=== PATIENT | male | born 1955 | race Caucasian/White ===

== ENCOUNTER 2018-02-12 15:12 | Inpatient (IN) | payer OTHER ==
[~2018-02-12] VITALS: Ht 162.6 cm; Wt 88.9 kg
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
[~2018-02-12 15:12] MED LIST: KEFLEX500 M1 PO
[2018-02-12 15:46] VITALS: BP 152/74
[2018-02-12 16:33] LABS: ABSOLUTE NEUTROPHILS 10.3 thou/uL (1.4-8.2); BASOPHILS 0.4 % (0.0-2.0); EOSINOPHILS 0.4 % (0.0-3.0); HEMOGLOBIN 13.8 gm/dL (14.0-18.0); LYMPHOCYTES 14.1 % (24.0-44.0); MCH 31.2 pg (26.0-34.0); MCHC 34.5 g/dL (28.0-37.0); MCV 90.3 fL (80.0-100.0); MONOCYTES 9.6 % (1.0-8.0); PLATELET COUNT 285 thou/uL (150-400); POLYS 75.5 % (36.0-66.0); RBC 4.43 mil/uL (4.50-6.00); RDW 12.4 % (10.5-14.5); WBC 13.6 thou/uL (4.0-11.0)
[2018-02-12 16:37] LABS: CALCIUM 10.1 mg/dL (8.5-10.1); CREATININE 0.9 mg/dL (0.7-1.3); POTASSIUM 5.1 mmol/L (3.5-5.1)
[2018-02-12] MEDS ORDERED: MILK THISTLE1 GM PO (17:55)
[2018-02-12] MEDS ORDERED: METFORMIN HCL500 MG PO (17:56)
[2018-02-12] MEDS ORDERED: LISINOPRIL10 MG PO (17:56)
[2018-02-12] MEDS ORDERED: CALCIUM 500 +1 EAC5 PO (17:56)
[2018-02-12] MEDS ORDERED: LIPITOR80 MG PO (17:56)
[2018-02-12] MEDS ORDERED: ASPIR 8181 MG PO (17:57)
[2018-02-12] MEDS ORDERED: METHADONE10 MG/1 M2 PO (17:59)
[2018-02-12 18:01] VITALS: BP 166/61
[2018-02-13 04:51] LABS: ABSOLUTE NEUTROPHILS 7.3 thou/uL (1.4-8.2); BASOPHILS 0.5 % (0.0-2.0); EOSINOPHILS 0.7 % (0.0-3.0); HEMATOCRIT 37.4 % (42.0-52.0); HEMOGLOBIN 12.9 gm/dL (14.0-18.0); LYMPHOCYTES 20.9 % (24.0-44.0); MCH 31.1 pg (26.0-34.0); MCHC 34.5 g/dL (28.0-37.0); MCV 90.1 fL (80.0-100.0); MONOCYTES 10.3 % (1.0-8.0); PLATELET COUNT 252 thou/uL (150-400); POLYS 67.6 % (36.0-66.0); RBC 4.15 mil/uL (4.50-6.00); RDW 12.6 % (10.5-14.5); WBC 10.9 thou/uL (4.0-11.0)
[2018-02-13 04:55] LABS: CALCIUM 8.7 mg/dL (8.5-10.1); CREATININE 0.7 mg/dL (0.7-1.3); MAGNESIUM 1.7 mg/dL (1.8-2.4)
[2018-02-13 04:56] LABS: POTASSIUM 3.9 mmol/L (3.5-5.1)
[2018-02-13 05:05] VITALS: BP 116/54
[2018-02-13 13:12] LABS: GLYCOHEMOGLOBIN (HGB A1C) 11.3 % (4.8-5.6)
[2018-02-13 13:43] VITALS: BP 144/66
[2018-02-13 14:54] VITALS: BP 144/66
[2018-02-13 20:30] VITALS: BP 137/63
[2018-02-14 04:30] VITALS: BP 141/66
[2018-02-14 07:08] LABS: BASOPHILS 0.5 % (0.0-2.0); EOSINOPHILS 1.6 % (0.0-3.0); HEMATOCRIT 40.4 % (42.0-52.0); HEMOGLOBIN 13.7 gm/dL (14.0-18.0); LYMPHOCYTES 17.3 % (24.0-44.0); MCH 30.9 pg (26.0-34.0); MCHC 33.9 g/dL (28.0-37.0); MCV 91.2 fL (80.0-100.0); MONOCYTES 8.5 % (1.0-8.0); PLATELET COUNT 261 thou/uL (150-400); POLYS 72.1 % (36.0-66.0); RBC 4.42 mil/uL (4.50-6.00); RDW 12.4 % (10.5-14.5); WBC 9.7 thou/uL (4.0-11.0)
[2018-02-14 08:00] VITALS: BP 138/70
[2018-02-14 12:58] VITALS: BP 138/70
[2018-02-14 17:00] VITALS: BP 128/56
[2018-02-14 19:40] VITALS: BP 108/70
[2018-02-15 08:37] VITALS: BP 135/72
[2018-02-15] MEDS ORDERED: CLEOCIN HCL150 MG PO (10:59)
[2018-02-15 14:10] VITALS: BP 138/70
== END 2018-02-15 18:08 | disposition home health service (06) | DRG 872 ==
LOC: ER 15:12 → 4E 17:17 → EROBS 17:17 → 4E 02-13 14:35 → SICU 02-14 19:01 → ENTRNSPT 02-15 17:54 → SICU 02-15 18:08
PROVIDERS: Emergency Medicine; Hospitalist; Nurse Practitioner
DX: A41.9 Sepsis, unspecified organism (principal); L03.115 Cellulitis of right lower limb; E11.51 Type 2 diabetes mellitus with diabetic peripheral angiopathy without gangrene; I10 Essential (primary) hypertension; J44.9 Chronic obstructive pulmonary disease, unspecified; Z16.30 Resistance to unspecified antimicrobial drugs; E11.65 Type 2 diabetes mellitus with hyperglycemia; D64.9 Anemia, unspecified; F17.210 Nicotine dependence, cigarettes, uncomplicated; E78.5 Hyperlipidemia, unspecified; G89.29 Other chronic pain; Z90.49 Acquired absence of other specified parts of digestive tract; Z98.49 Cataract extraction status, unspecified eye; Z79.82 Long term (current) use of aspirin; Z79.899 Other long term (current) drug therapy
CPT/HCPCS: 10084; 15002

== ENCOUNTER 2021-03-17 11:52 | Inpatient (IN) | payer OTHER ==
[2021-03-17] VITALS (11 sets, daily range): BP systolic 110–158; BP diastolic 60–74
[~2021-03-17] VITALS: Ht 162.6 cm; Wt 74.4 kg
[~2021-03-17 11:52] MED LIST changes: +ASPIR 8181 MG PO; +CALCIUM 500 +1 EAC5 PO; +CLEOCIN HCL150 MG PO; +LIPITOR80 MG PO; +LISINOPRIL10 MG PO; +METFORMIN HCL500 MG PO; +METHADONE10 MG/1 M2 PO; +MILK THISTLE1 GM PO
[2021-03-17 12:51] LABS: HEMATOCRIT 48.4 % (42.0-52.0); HEMOGLOBIN 16.5 gm/dL (14.0-18.0); MCH 31.4 pg (26.0-34.0); MCHC 34.2 g/dL (28.0-37.0); MCV 91.8 fL (80.0-100.0); RBC 5.27 mil/uL (4.50-6.00); RDW 13.6 % (10.5-14.5); WBC 11.2 thou/uL (4.0-11.0)
[2021-03-17 13:02] LABS: ALBUMIN 3.4 g/dL (3.4-5.0); CALCIUM 9.3 mg/dL (8.5-10.1); TOTAL BILIRUBIN 0.7 mg/dL (0.2-1.0); TOTAL PROTEIN 8.2 g/dL (6.4-8.2)
[2021-03-17 14:55] LABS: BE(vivo) -17.4 mmol/L (-2 to +3); HCO3 10.2 mmol/L (22.0-26.0); PCO2 VENOUS 30.6 mmHg (41.0-51.0); PO2 VENOUS 46.7 mmHg (35.0-45.0)
[2021-03-17 18:11] LABS: ALBUMIN 2.7 g/dL (3.4-5.0); CALCIUM 8.1 mg/dL (8.5-10.1); CREATININE 0.8 mg/dL (0.7-1.3); PHOSPHORUS 2.9 mg/dL (2.6-4.7)
[2021-03-17 18:12] LABS: POTASSIUM 5.3 mmol/L (3.5-5.1)
--- NOTE | 2021-03-17 19:15 | NUR ---
REPORT GIVEN TO JULIO CÉSAR VALDEZ AT THIS TIME
[2021-03-17 19:34] LABS: FOLIC ACID 37.6 ng/mL (8.6-58.9)
[2021-03-17 23:12] LABS: CREATININE 0.7 mg/dL (0.7-1.3)
[2021-03-17 23:14] LABS: POTASSIUM 3.7 mmol/L (3.5-5.1)
[2021-03-17 23:18] LABS: ALBUMIN 2.5 g/dL (3.4-5.0); TOTAL BILIRUBIN 0.5 mg/dL (0.2-1.0); TOTAL PROTEIN 6.5 g/dL (6.4-8.2)
[2021-03-18] VITALS (97 sets, daily range): BP systolic 110–191; BP diastolic 52–126
--- NOTE | 2021-03-18 01:18 | NUR ---
PATIENT ARRIVED AT THE UNIT AT APPROX 2130. PATIENT IS A/OX4. DENIES SOA, PAIN. C/O NAUSEA. MEDS GIVEN ORDERED. ON THE MONITOR. AFEBRILE. ON RA. VSS. ON INSULIN GTT. TITRATED PER DKA PROTOCOL. DENIES NEEDS. WILL KEEP MONITORING.
[2021-03-18 01:39] LABS: URINE BILIRUBIN 1+ (Negative); URINE BLOOD TRACE (Negative); URINE CLARITY CLEAR; URINE COLOR YELLOW; URINE GLUCOSE-RANDOM* 3+ (Negative); URINE KETONES 3+ (Negative); URINE LEUKOCYTES-REFLEX NEGATIVE (Negative); URINE NITRITE-REFLEX NEGATIVE (Negative); URINE PROTEIN (DIPSTICK) TRACE (Negative); URINE UROBILINOGEN 0.2 E.U./dl (0.2-1.0)
[2021-03-18 04:07] LABS: GLYCOHEMOGLOBIN (HGB A1C) 10.7 % (4.8-5.6)
[2021-03-18 05:26] LABS: BASOPHILS 0.1 % (0.0-2.0); HEMATOCRIT 44.4 % (42.0-52.0); HEMOGLOBIN 15.5 gm/dL (14.0-18.0); LYMPHOCYTES 18.4 % (24.0-44.0); MCH 31.5 pg (26.0-34.0); MCHC 34.8 g/dL (28.0-37.0); MCV 90.6 fL (80.0-100.0); MONOCYTES 11.5 % (1.0-8.0); PLATELET COUNT 150 thou/uL (150-400); RDW 13.7 % (10.5-14.5); WBC 7.2 thou/uL (4.0-11.0)
[2021-03-18 05:45] LABS: ALBUMIN 2.6 g/dL (3.4-5.0); CALCIUM 8.3 mg/dL (8.5-10.1); CREATININE 0.8 mg/dL (0.7-1.3); MAGNESIUM 1.6 mg/dL (1.8-2.4); PHOSPHORUS 1.5 mg/dL (2.5-4.9); POTASSIUM 3.7 mmol/L (3.5-5.1)
[2021-03-18 09:14] LABS: ALBUMIN 2.5 g/dL (3.4-5.0); CALCIUM 8.3 mg/dL (8.5-10.1); CREATININE 0.7 mg/dL (0.7-1.3); POTASSIUM 3.5 mmol/L (3.5-5.1); TOTAL BILIRUBIN 0.5 mg/dL (0.2-1.0); TOTAL PROTEIN 6.4 g/dL (6.4-8.2)
--- NOTE | 2021-03-18 09:39 | EKG ---
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
[2021-03-18 13:01] LABS: CALCIUM 8.4 mg/dL (8.5-10.1); CREATININE 0.8 mg/dL (0.7-1.3); MAGNESIUM 1.5 mg/dL (1.8-2.4); POTASSIUM 3.8 mmol/L (3.5-5.1)
--- NOTE | 2021-03-18 13:56 | NUR ---
Chart review. Discussed during los and unite rounds. + COVID. Unable to visit with him. Cm tired calling jan and his daughter dimitris. Neither numbers are working or in service. Will need to verify if he is indeed homeless , and if has PCP?. Will cont following as needed for dc needs.
[2021-03-19] VITALS (32 sets, daily range): BP systolic 136–183; BP diastolic 58–89
[2021-03-19 06:01] LABS: ABSOLUTE NEUTROPHILS 4.8 thou/uL (1.4-8.2); BASOPHILS 0.2 % (0.0-2.0); EOSINOPHILS 0.1 % (0.0-3.0); HEMOGLOBIN 15.3 gm/dL (14.0-18.0); LYMPHOCYTES 13.9 % (24.0-44.0); MCH 31.6 pg (26.0-34.0); MCHC 35.6 g/dL (28.0-37.0); MCV 88.9 fL (80.0-100.0); PLATELET COUNT 143 thou/uL (150-400); POLYS 74.8 % (36.0-66.0); RBC 4.84 mil/uL (4.50-6.00); RDW 13.6 % (10.5-14.5); WBC 6.4 thou/uL (4.0-11.0)
[2021-03-19 06:35] LABS: ALBUMIN 2.4 g/dL (3.4-5.0); CALCIUM 7.9 mg/dL (8.5-10.1); CREATININE 0.5 mg/dL (0.7-1.3); POTASSIUM 3.2 mmol/L (3.5-5.1); TOTAL BILIRUBIN 0.7 mg/dL (0.2-1.0); TOTAL PROTEIN 6.4 g/dL (6.4-8.2)
--- NOTE | 2021-03-19 10:50 | NUR ---
Discussed during los, possible dc today. CM visited with bedside nurse to see if patient can talk on phone r/t question as to where he plan on going when he is ready for dc. Reported he lives at [facility] [address]. Daughter name is dedra, and she stays with him but he doesnt remember her number. He pcp is at [address] He will need a ride home.
--- NOTE | 2021-03-19 15:40 | NUR ---
1110HRS - PROGRAM MANAGER SLP, RN UPDATED ON PT'S LIVING STATUS. PT SAID THAT HE IS LIVING IN A HOTEL([facility] WITH HIS DAUGHTER (JACKIE). HE REPORTED THAT HE LIVES AT [facility] [place] [facility] [place] [facility], [address], [address], [address], [place], [place]. HE ALSO REPORTED THAT HIS PHARMACY IS AT [place], [place].
--- NOTE | 2021-03-19 23:41 | NUR ---
PATIENT REMAINS A/OX4. DENIES ANY SOA. C/O N/V. MEDS GIVEN ORDERED. AFEBRILE. VSS. PT HAS TX ORDERS TO 3W. REPORT CALLED TO 3W RN. PATIENT OFF THE UNIT AT APPROX 2300 VIA WHEELCHAIR. REMAINS ON RA. PATIENT BELONGINGS TAKEN WITH THE PT. ATTACHED TO MONITOR. DENIES NEEDS. ALL QUESTIONS ANSWERED.
--- NOTE | 2021-03-19 23:52 | NUR ---
TRANSFERED FROM ICU. PT REPORTNG CONTINUED NAUSEA, PRN PROVIDED SCHEDULED. DUSKY SKIN TONE. PT ENCOURAGED TO CALL FOR ASSISTANCE.
[2021-03-20] VITALS (7 sets, daily range): BP systolic 138–172; BP diastolic 66–88
[2021-03-20 10:55] LABS: HEMATOCRIT 44.4 % (42.0-52.0); HEMOGLOBIN 15.5 gm/dL (14.0-18.0); MCH 30.7 pg (26.0-34.0); MCHC 34.8 g/dL (28.0-37.0); MCV 88.3 fL (80.0-100.0); RBC 5.03 mil/uL (4.50-6.00); RDW 13.2 % (10.5-14.5)
[2021-03-20 10:59] LABS: CALCIUM 8.2 mg/dL (8.5-10.1); CREATININE 0.5 mg/dL (0.7-1.3); MAGNESIUM 1.5 mg/dL (1.8-2.4)
--- NOTE | 2021-03-20 19:46 | NUR ---
RN ASSUMED PT'S CARE AT 0700-1900PM, PT IS A&OX4, PT IS ON ROOM AIR, PT IS CONTINUING USE IV ABX AND TREAT COVID, AND MANAGE N/V , PT HAS ONE TIME BM, BUT PT STILL IS POOR EATING , PT HAS STARTED PPN@ 80ML/HR, PT DENIES PAIN AND SOB AT DAY SHIFT .
--- NOTE | 2021-03-20 23:47 | NUR ---
PT HAD FALL. PT STATED HE CALLED FOR ASSISTANCE TO TURN UP HEAT BUT GOT TIRED OF WAITING. PT FOUNDS SITTING UPRIGHT ON FLOOR BY EDGE OF BED. STILL ATTACHED TO IV POLE. PT DID NOT TAKE IV POLE WITH HIM WHILE AMBULATING HE WAS TRYING TO JUST STRETCH AND REACH TEMP GUAGE ON WALL. PT YELLED OUT FOR ASSISTANCE. PT WAS ABLE TO PULL HIMSELF UP BY HOLDING ON TO FOOT BOARD OF BED. PT STATED HE LANDED ON HIS BOTTOM AND LOWER BACK AREA. PT REPORTED CHRONIC DISCOMFORT NOT NEW. NO RED AREAS NOTED. PT RETURNED TO BED. WARM BLANKET, HEAT INCREASED, PRN PROVIDED. BED ALARM ON. PT DECLINED SOCKS. NATURAL RESOURCES MANAGER, CHARGE AND PROVIDER NOTIFIED. 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
[2021-03-21 00:30] VITALS: BP 147/81
[2021-03-21 00:58] VITALS: BP 147/81
--- NOTE | 2021-03-21 01:57 | NUR ---
PT RESTING IN BED, BED ALARM ON. PT HAD FALL THIS SHIFT. PPN INTACT. PT PROVIDED HS SNACK. NO C/O NAUSEA. PT REQUESTED NICOTENE PATCH AND ORDER OBTAINED.
[2021-03-21 03:48] LABS: HEMATOCRIT 40.8 % (42.0-52.0); HEMOGLOBIN 14.5 gm/dL (14.0-18.0); MCH 31.1 pg (26.0-34.0); MCHC 35.6 g/dL (28.0-37.0); MCV 87.5 fL (80.0-100.0); RBC 4.66 mil/uL (4.50-6.00); RDW 13.1 % (10.5-14.5); WBC 6.4 thou/uL (4.0-11.0)
[2021-03-21 03:53] LABS: CALCIUM 7.8 mg/dL (8.5-10.1); CREATININE 0.6 mg/dL (0.7-1.3); MAGNESIUM 1.7 mg/dL (1.8-2.4); POTASSIUM 3.1 mmol/L (3.5-5.1)
[2021-03-21 04:16] VITALS: BP 147/67
--- NOTE | 2021-03-21 05:40 | NUR ---
IV POTASSIUM RAN ALL NIGHT AND COMPLETED THIS AM.
--- NOTE | 2021-03-21 06:28 | NUR ---
PT STATED THIS AM TO NURSE THAT IF HIS ROOM WAS NOT MADE WARMER HE WOULD GET UP AGAIN, WITH OUT CALLING FOR HELP TO TURN UP THE THERMOSTAT. PT PROVIDED WARM BLANKET, HEAT INCREASED AND VENT COVERED. PT EDUCATED AGAIN TO CALL FOR ASSISTANCE.
[2021-03-21 07:28] VITALS: BP 152/73
[2021-03-21 15:06] VITALS: BP 136/75
--- NOTE | 2021-03-21 17:05 | NUR ---
RN ASSUMED PT'S CARE AT 0700AM, PT IS A&OX3 ( PERSON, PLACE AND TIME), PT IS CONTINUING TO TREAT COVID, PAIN AND N/V MANAGEMENT, PT'S VS AND O2SAT ARE STABLE, PT DENIES SOB, BUT PT STILL IS WEAK, PT WAS FALL AT YESTODAY, RN HAS REMIDERED PT TO CALL FOR ANY HELP, PT''S BED AND CHAIR ALARM ARE ON, PT'S LOW POTASSIUM AND LOW MAGNESIUM HAVE REPLACEMENT.
[2021-03-21 19:29] VITALS: BP 141/70
== END 2021-03-21 23:20 | disposition left against medical advice (07) | DRG 637 ==
LOC: ER 11:52 → EROBS 16:22 → ICU 16:22 → 3W 03-19 22:57
PROVIDERS: Internal Medicine Pulmonary Disease; Nurse Practitioner; Nurse Practitioner Family; ADMIT Internal Medicine; ATTEND Internal Medicine
DX: E11.10 Type 2 diabetes mellitus with ketoacidosis without coma (principal); U07.1 COVID-19; E87.2 Acidosis; K52.9 Noninfective gastroenteritis and colitis, unspecified; F17.210 Nicotine dependence, cigarettes, uncomplicated; G89.29 Other chronic pain; E78.5 Hyperlipidemia, unspecified; A08.4 Viral intestinal infection, unspecified; E11.51 Type 2 diabetes mellitus with diabetic peripheral angiopathy without gangrene; I10 Essential (primary) hypertension; J44.9 Chronic obstructive pulmonary disease, unspecified; Z53.21 Procedure and treatment not carried out due to patient leaving prior to being seen by health care provider; Z98.42 Cataract extraction status, left eye; Z98.41 Cataract extraction status, right eye; Z90.49 Acquired absence of other specified parts of digestive tract; Z79.899 Other long term (current) drug therapy; Z79.82 Long term (current) use of aspirin; Z72.89 Other problems related to lifestyle
CPT/HCPCS: 10078; 10779; 10879

== ENCOUNTER 2021-05-26 09:40 | Emergency (ER) | payer OTHER ==
[~2021-05-26] VITALS: Ht 162.6 cm; Wt 81.7 kg
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
[2021-05-26 10:31] LABS: ABSOLUTE NEUTROPHILS 4.6 thou/uL (1.4-8.2); BASOPHILS 0.9 % (0.0-2.0); HEMATOCRIT 45.1 % (42.0-52.0); HEMOGLOBIN 15.1 gm/dL (14.0-18.0); LYMPHOCYTES 21.1 % (24.0-44.0); MCH 31.7 pg (26.0-34.0); MCHC 33.6 g/dL (28.0-37.0); MCV 94.5 fL (80.0-100.0); PLATELET COUNT 278 thou/uL (150-400); RBC 4.77 mil/uL (4.50-6.00); RDW 14.3 % (10.5-14.5); WBC 6.7 thou/uL (4.0-11.0)
[2021-05-26 10:48] LABS: CALCIUM 9.2 mg/dL (8.5-10.1); CREATININE 0.6 mg/dL (0.7-1.3); POTASSIUM 3.9 mmol/L (3.5-5.1)
[2021-05-26 10:56] LABS: ALBUMIN 3.2 g/dL (3.4-5.0); DIRECT BILIRUBIN 0.2 mg/dL (<0.1-0.2); TOTAL BILIRUBIN 0.7 mg/dL (0.2-1.0); TOTAL PROTEIN 7.9 g/dL (6.4-8.2)
[2021-05-26] MEDS ORDERED: MOBIC7.5 MG PO (11:49)
[2021-05-26 11:53] VITALS: BP 143/75
--- NOTE | 2021-05-27 08:17 | EKG ---
[address] [employer] [place] [address] ELECTROCARDIOGRAM REPORT Name: NAVA AHM Room #: [facility]#: [id number] Admission: 05/26/21 Attend Phys: Discharge: 05/26/21 Date of : 51 Report #: [id number] [facility] ED Test Date: 2021-05-26 Test Time: 10:22:46 Pat Name: NAVA HAM Department: Room: Gender: Sample Maker Original: VANDANA : 1955 Requested By: Medhat Ross Order Number: [id number] MD: Fly De Los Santos Measurements Intervals [place] Rate: 69 P: 54 RI: 159 QRS: 52 QRSD: 88 T: 40 QT: 412 QTc: 442 Interpretive Statements Sinus rhythm Probable left atrial enlargement Compared to ECG 03/17/2021 16:37:24 T-wave abnormality no longer present Electronically Signed On 05-27-2021 8:17:07 CDT by Fly De Los Santos [email or web address] <ELECTRONICALLY SIGNED> By: Fly De Los Santos MD, [facility] 05/27/21 0817 1022 1022 Fly De Los Santos MD, FACC /EPI
== END 2021-05-26 11:53 | disposition home or self-care (01) ==
LOC: ER 09:40
PROVIDERS: Student in an Organized Health Care Education/Training Program
DX: M54.6 Pain in thoracic spine (principal)